=== PATIENT | male | born 1985 | race Caucasian/White ===

== ENCOUNTER 2017-11-25 17:48 | Emergency (ER) | payer OTHER ==
[2017-11-25] MEDS ORDERED: LIDOCAINE 1% W/EPI 1:100,000 MDV 50 ML VIAL ONE (17:51)
--- NOTE | 2017-11-25 19:06 | RAD REPORT ---
EXAM DESCRIPTION: RAD - Knee Left 3 View - 11/25/2017 6:46 pm CLINICAL HISTORY: Laceration COMPARISON: None. FINDINGS: No fracture, dislocation or radiopaque foreign body. IMPRESSION: Negative study.
--- NOTE | 2017-11-25 19:17 | ER ---
Nurse's Notes [facility] Name: Justice Solorio Age: 31 yrs Sex: Male : 1985 Arrival Date: 11/25/2017 Time: 17:49 Bed 2 Private MD: Diagnosis: Laceration to left posterior leg Presentation: 11/25 17:45 Presenting complaint: Patient states: "I was taking out the trash and it had a piece of sv broken glass in it and it hit the back of my leg and it started shooting blood, so I just held pressure." Pt holding direct pressure to laceration. Transition of care: patient was not received from another setting of care. Complicating Factors: Glass or an other foreign body is present in the wound. Onset of symptoms was November 25, 2017. 17:45 Method Of Arrival: Ambulatory 17:45 Acuity: DINAH 3 sv 17:46 Risk Assessment: Do you want to hurt yourself or someone else? Patient reports no sv desire to harm self or others. Initial Sepsis Screen: Does the patient meet any 2 criteria? No. Patient's initial sepsis screen is negative. Does the patient have a suspected source of infection? No. Patient's initial sepsis screen is negative. Care prior to arrival: None. Triage Assessment: 17:45 General: Appears in no apparent distress. uncomfortable, well developed, Behavior is sv calm, cooperative, appropriate for age. Pain: Complains of pain in posterior aspect of left knee Pain currently is 5 out of 10 on a pain scale. EENT: No signs and/or symptoms were reported regarding the EENT system. Neuro: Level of Consciousness is awake, alert, obeys commands, Oriented to person, place, time, situation, Moves all extremities. Full function Gait is steady. Cardiovascular: Patient's skin is warm and dry. Respiratory: Respiratory effort is even, unlabored, Respiratory pattern is regular, symmetrical. GI: No signs and/or symptoms were reported involving the gastrointestinal system. : No signs and/or symptoms were reported regarding the genitourinary system. Derm: Skin is normal. Musculoskeletal: No signs and/or symptoms reported regarding the musculoskeletal system. Injury Description: Laceration sustained to posterior aspect of left knee is contaminated, 0.5 to 2.5 cm long, not bleeding, was sustained less than 30 minutes ago. is bleeding no active bleeding noted. Historical: - Allergies: 18:05 No Known Allergies; sv - Home Meds: 18:05 Adderall XR Oral [Active]; irbesartan oral oral [Active]; sv - PMHx: 18:05 Hypertension; sv - PSHx: 18:05 Tonsillectomy; sv - Immunization history:: Adult Immunizations up to date. - Social history:: Smoking status: Patient/guardian denies using tobacco, Patient uses alcohol, 5-6 days weekly. Patient/guardian denies using street drugs, IV drugs. - Ebola Screening: : No symptoms or risks identified at this time. Screenin:10 Abuse screen: Denies threats or abuse. Denies injuries from another. Nutritional sv screening: No deficits noted. Tuberculosis screening: No symptoms or risk factors identified. Fall Risk None identified. Assessment: 18:09 Reassessment: Dr Hillman at bedside irrigating the laceration. sv 18:20 Reassessment: Patient appears in no apparent distress at this time. No changes from sv previously documented assessment. Patient and/or family updated on plan of care and expected duration. Pain level reassessed. Patient is alert, oriented x 3, equal unlabored respirations, skin warm/dry/pink. 18:44 Reassessment: pt in imaging at this time, not available for vs. tw2 Vital Signs: 18:06 BP 137 / 74; Pulse 61; Resp 18; Temp 98.4; Pulse Ox 98% ; Weight 90.72 kg; Height 6 ft. sv 0 in. (182.88 cm); 19:28 BP 117 / 78; Pulse 55; Resp 18; Pulse Ox 97% on R/A; tl2 18:06 Body Mass Index 27.12 (90.72 kg, 182.88 cm) sv ED Course: 17:49 Patient arrived in ED. mr 17:57 Sean Myrick, DEVENDRA is PHCP. pm1 17:57 Kanu Hillman MD is Attending Physician. pm1 17:59 Balbina Truong RN is Primary Nurse. sv 18:04 Triage completed. sv 18:07 Arm band placed on right wrist. sv 18:10 Patient has correct armband on for positive identification. Adult w/ patient. Pulse ox sv on. NIBP on. Door closed. Head of bed elevated. 18:20 Assist provider with laceration repair on posterior aspect of left knee that was 2.5 sv cm. or less using sutures. Set up tray. Performed by Kanu Hillman MD Dressed with 4X4s, Kerlix, Patient tolerated well. 18:41 Knee Left 3 View XRAY In Process Unspecified. EDMS 18:49 Dressings: non-adherent dressing x 1 left leg. jb1 19:09 Primary Nurse role handed off by Balbina Truong RN 19:26 Roxanna Luz RN is Primary Nurse. tl2 19:28 Patient did not have IV access during this emergency room visit. tl2 Administered Medications: 19:26 Drug: Tetanus-Diphtheria Toxoid Adult 0.5 ml {Cigarette Stamper: [employer]. Exp: tl2 02/02/2020. Lot #: [id number]. } Route: IM; Site: left deltoid; 19:29 Follow up: Response: No adverse reaction; Medication administered at discharge. tl2 Outcome: 19:17 Discharge ordered by . ps1 19:28 Discharged to home ambulatory, with family. tl2 19:28 Condition: stable 19:28 Discharge instructions given to patient, Instructed on discharge instructions, follow up and referral plans. medication usage, Demonstrated understanding of instructions, follow-up care, medications, wound care, Prescriptions given X 2. 19:30 Patient left the ED. tl2 Signatures: Dispatcher [employer] EDMS Tung Mac jb1 Balbina Truong, TANESHA AndradeaRoselyn mr Myrick Sean, FRANCHISE DEVELOPMENT MANAGER FRANCHISE DEVELOPMENT MANAGER pm1 Lyla Turner RN RN tw2 Roxanna Luz RN RN tl2 Kanu Hillman MD MD ps1 Corrections: (The following items were deleted from the chart) 18:09 17:45 Presenting complaint: Patient states: "I was taking out the trash and it had a sv piece of broken glass in it and it hit the back of my leg and it started shooting blood, so I just held pressure." sv
--- NOTE | 2017-11-25 19:17 | EDPHYS ---
Physician Documentation [facility] Name: Justice Solorio Age: 31 yrs Sex: Male : 1985 Arrival Date: 11/25/2017 Time: 17:49 Bed 2 Private MD: ED Physician Kanu Hillman HPI: 11/25 18:22 This 31 yrs old Male presents to ER via Ambulatory with complaints of ps1 Laceration To Leg. 18:22 The patient has a laceration related to: handling garbage, a puncture wound taking out ps1 trash and piece of glass punctured leg while bag was swinging. , occurred. The laceration(s) is(are) located on the posterior aspect of left knee. Onset: The symptoms/episode began/occurred just prior to arrival. Associated signs and symptoms: Pertinent positives: heavy bleeding, Pertinent negatives: numbness distal to injury, suspected foreign body. unknown tetanus. Historical: - Allergies: 18:05 No Known Allergies; sv - Home Meds: 18:05 Adderall XR Oral [Active]; irbesartan oral oral [Active]; sv - PMHx: 18:05 Hypertension; sv - PSHx: 18:05 Tonsillectomy; sv - Immunization history:: Adult Immunizations up to date. - Social history:: Smoking status: Patient/guardian denies using tobacco, Patient uses alcohol, 5-6 days weekly. Patient/guardian denies using street drugs, IV drugs. - Ebola Screening: : No symptoms or risks identified at this time. ROS: 18:22 Constitutional: Negative for fever, chills, and weight loss, Eyes: Negative for injury, ps1 pain, redness, and discharge, Cardiovascular: Negative for chest pain, palpitations, and edema, Respiratory: Negative for shortness of breath, cough, wheezing, and pleuritic chest pain, Abdomen/GI: Negative for abdominal pain, nausea, vomiting, diarrhea, and constipation, Back: Negative for injury and pain. 18:22 Neuro: Negative for headache, weakness, numbness, tingling, and seizure, Psych: Negative for depression, anxiety, suicide ideation, homicidal ideation, and hallucinations. 18:22 MS/extremity: Positive for laceration, Negative for swelling, tingling. Exam: 18:22 Constitutional: This is a well developed, well nourished patient who is awake, alert, ps1 and in no acute distress. Head/Face: Normocephalic, atraumatic. Eyes: Pupils equal round and reactive to light, extra-ocular motions intact. Lids and lashes normal. Conjunctiva and sclera are non-icteric and not injected. Chest/axilla: Normal chest wall appearance and motion. Nontender with no deformity. No lesions are appreciated. Cardiovascular: Regular rate and rhythm. No gallops, murmurs, or rubs. Normal PMI, no JVD. No pulse deficits. Respiratory: Lungs have equal breath sounds bilaterally, clear to auscultation and percussion. No rales, rhonchi or wheezes noted. No increased work of breathing, no retractions or nasal flaring. Abdomen/GI: Soft, non-tender, with normal bowel sounds. No distension or tympany. No guarding or rebound. No evidence of tenderness throughout. 18:22 Musculoskeletal/extremity: Extremities: grossly normal except: noted in the posterior aspect of left knee: laceration, pain, puncture, There is no evidence of NV injury. Bleeding controlled COPY WRITER. . Vital Signs: 18:06 BP 137 / 74; Pulse 61; Resp 18; Temp 98.4; Pulse Ox 98% ; Weight 90.72 kg; Height 6 ft. sv 0 in. (182.88 cm); 19:28 BP 117 / 78; Pulse 55; Resp 18; Pulse Ox 97% on R/A; tl2 18:06 Body Mass Index 27.12 (90.72 kg, 182.88 cm) sv Laceration: 18:22 Wound Repair of 5.1cm ( 2in ) subcutaneous laceration to posterior aspect of left knee. ps1 Linear shaped.. Minimal bleeding noted.. Distal neuro/vascular/tendon intact. Anesthesia: Local anesthetic administered with 5 mls of 1% lidocaine w/ Epi. Wound prep: Moderate cleansing, Wound irrigation, Copious irrigation. Skin closed with 4 5-0 Prolene using simple sutures and sterile technique. Dressed with Bacitracin, 4x4's, tube gauze. Patient tolerated well. MDM: 18:16 Patient medically screened. ps1 19:18 Data reviewed: vital signs, nurses notes, radiologic studies. ps1 11/25 18:27 Order name: Knee Left 3 View XRAY; Complete Time: 19:15 ps1 Administered Medications: 19:26 Drug: Tetanus-Diphtheria Toxoid Adult 0.5 ml {Emergency Management System Director: [employer]. Exp: tl2 02/02/2020. Lot #: [id number]. } Route: IM; Site: left deltoid; 19:29 Follow up: Response: No adverse reaction; Medication administered at discharge. tl2 Disposition: 11/25/17 19:17 Discharged to Home. Impression: Laceration to left posterior leg. - Condition is Stable. - Discharge Instructions: Laceration Care, Adult, [id number]. - Prescriptions for Keflex 500 mg Oral Capsule - take 1 capsule by ORAL route every 12 hours for 10 days; 20 capsule. Anaprox DS 550 mg Oral Tablet - take 1 tablet by ORAL route every 12 hours As needed; 20 tablet. - Medication Reconciliation Form, Thank You Letter, Antibiotic Education, Prescription Opioid Use form. - Follow up: Private Physician; When: 7 - 10 days; Reason: Recheck today's complaints, Continuance of care, Re-evaluation by your physician, suture removal. Follow up: Emergency Department; When: As needed; Reason: Fever > 102 F, Worsening of condition. - Problem is new. - Symptoms have improved. Signatures: Dispatcher [employer] EDBalbina Ferrera RN RN sv Roxanna Luz RN RN tl2 Kanu Hillman MD MD ps1 Corrections: (The following items were deleted from the chart) 19:30 19:17 11/25/2017 19:17 Discharged to Home. Impression: Laceration to left posterior tl2 leg. Condition is Stable. Forms are Medication Reconciliation Form, Thank You Letter, Antibiotic Education, Prescription Opioid Use. Follow up: Private Physician; When: 7 - 10 days; Reason: Recheck today's complaints, Continuance of care, Re-evaluation by your physician, suture removal. Follow up: Emergency Department; When: As needed; Reason: Fever > 102 F, Worsening of condition. Problem is new. Symptoms have improved. ps1
[2017-11-25] MEDS ORDERED: TETANUS & DIPHTHERIA TOX,ADULT 0.5 ML VIAL ONE ×2 (19:20→19:21)
== END 2017-11-25 19:30 | disposition home or self-care (01) ==
LOC: ER 17:48
PROC: 0JQP0ZZ Repair Left Lower Leg Subcutaneous Tissue and Fascia, Open Approach (ICD-10-PCS; principal; 2017-11-25)
DX: S81.012A Laceration without foreign body, left knee, initial encounter (principal); W25.XXXA Contact with sharp glass, initial encounter; Y93.E9 Activity, other interior property and clothing maintenance; Y92.009 Unspecified place in unspecified non-institutional (private) residence as the place of occurrence of the external cause; Z23 Encounter for immunization; I10 Essential (primary) hypertension
CPT/HCPCS: 90714; 99284